=== PATIENT | female | born 2000 | race Caucasian/White ===

== ENCOUNTER 2020-04-03 21:45 | Emergency (ER) | payer OTHER ==
[~2020-04-03] VITALS: Ht 162.6 cm; Wt 54.5 kg
[2020-04-03 22:04] VITALS: BP 117/68; TEMP 98.8
[2020-04-03] MEDS ORDERED: FLOXIN OTIC DROP5 ML OT (22:07)
[2020-04-03 22:58] VITALS: PULSE 92
== END 2020-04-03 23:00 | disposition home or self-care (01) ==
LOC: COL.ER 21:45
DX: H60.91 Unspecified otitis externa, right ear (principal); Z88.0 Allergy status to penicillin; Z88.1 Allergy status to other antibiotic agents

== ENCOUNTER 2021-06-05 11:16 | Emergency (ER) | payer OTHER ==
[~2021-06-05] VITALS: Ht 162.6 cm; Wt 56.8 kg
[~2021-06-05 11:16] MED LIST: FLOXIN OTIC DROP5 ML OT
[2021-06-05 11:27] VITALS: BP 119/81; PULSE 81; TEMP 98.3
== END 2021-06-05 12:28 | disposition home or self-care (01) ==
LOC: COL.ER 11:16
DX: S29.012A Strain of muscle and tendon of back wall of thorax, initial encounter (principal); Z98.890 Other specified postprocedural states; V49.40XA Driver injured in collision with unspecified motor vehicles in traffic accident, initial encounter

== ENCOUNTER 2023-02-18 20:54 | Emergency (ER) | payer BC ==
[~2023-02-18] VITALS: Ht 162.6 cm; Wt 59.1 kg
[2023-02-18 20:59] VITALS: TEMP 98.2
[2023-02-18 21:38] LABS: BASO % 0.7 % (0.0-2.0); EOS # 0.1 K/mm3 (0.0-0.7); GRAN # 3.1 K/mm3 (1.4-6.5); HEMATOCRIT 39.8 % (37.0-47.0); HEMOGLOBIN 13.7 g/dl (12.5-16.0); LYMPH # 2.3 K/mm3 (1.2-3.4); LYMPH % 38.3 % (20.0-51.0); MEAN CELL VOLUME 92 fl (80.0-100.0); MEAN CORPUSCULAR HEMOGLOBIN 32 pg (27-31); MEAN CORPUSCULAR HGB CONC 34 g/dl (33.0-37.0); MEAN PLATELET VOLUME 9.4 fl (7.4-10.4); MONO # 0.5 K/mm3 (0.1-0.6); PLATELET COUNT 265 K/mm3 (130-400); RED BLOOD COUNT 4.35 M/mm3 (4.10-5.30); REDCELL DISTRIBUTION WIDTH-CV 12.2 % (11.5-14.5)
[2023-02-18 21:46] LABS: PROTHROMBIN TIME 11.2 SECONDS (9.7-12.8)
[2023-02-18 21:49] LABS: PARTIAL THROMBOPLASTIN TIME 26.7 SECONDS (26.0-37.0)
[2023-02-18 21:55] LABS: ALBUMIN 4.3 gm/dL (3.5-5.0); BILIRUBIN,TOTAL 1.6 mg/dL (0.2-1.2); CALCIUM 9.2 mg/dL (8.4-10.2); CREATININE, serum 0.83 mg/dL (0.57-1.11); POTASSIUM 3.1 mmol/L (3.5-4.5); TOTAL PROTEIN 7.5 gm/dL (6.2-8.1)
[2023-02-18 21:59] LABS: COLLECTION METHOD CLEAN CATCH
[2023-02-18 22:13] LABS: URINE APPEARANCE Clear (CLEAR/HAZY); URINE BLOOD Negative (NEGATIVE); URINE COLOR Yellow (YELLOW); URINE GLUCOSE Negative (NEGATIVE); URINE KETONE 1+ (NEGATIVE); URINE NITRATE Negative (NEGATIVE); URINE PROTEIN(semi-quant) Negative (NEGATIVE); URINE RBC None Seen /hpf (0-2); URINE UROBILINOGEN 0.2 E.U/dL (0.2-1.0)
[2023-02-18 22:14] LABS: URINE BACTERIA Rare /hpf (NONE SEEN)
[2023-02-18 23:22] VITALS: BP 113/73; PULSE 73
== END 2023-02-18 23:23 | disposition home or self-care (01) ==
LOC: COL.ER 20:54
PROVIDERS: Emergency Medicine
DX: H53.40 Unspecified visual field defects (principal); E87.6 Hypokalemia
CPT/HCPCS: Q9967